=== PATIENT | male | born 1980 | race Caucasian/White ===

== ENCOUNTER 2017-12-09 17:23 | Emergency (ER) | payer MEDICAID | END 2017-12-09 20:28 | disposition home or self-care (01) | LOC: FTE 17:23 | DX: H61.22 Impacted cerumen, left ear (principal) | CPT/HCPCS: 69209; 99282-25 ==

== ENCOUNTER 2018-10-15 08:44 | Emergency (ER) | payer MEDICAID ==
[2018-10-15] MEDS: CYCLOBENZAPRINE 10 MG TAB PO (09:16)
[2018-10-15] MEDS: KETOROLAC 30 MG INJ IM (09:16)
== END 2018-10-15 10:14 | disposition home or self-care (01) ==
LOC: FTE 10:14
DX: M54.41 Lumbago with sciatica, right side (principal); M62.830 Muscle spasm of back
CPT/HCPCS: 72100; 96372; 99284-25